=== PATIENT | female | born 1955 | race Caucasian/White ===

== ENCOUNTER 2023-07-30 11:13 | Outpatient (CLI) | payer OTHER | END 2023-07-30 11:14 | disposition home or self-care (01) | LOC: DTY/OP 11:13 | PROVIDERS: ATTEND Surgery | DX: E66.01 Morbid (severe) obesity due to excess calories (principal) | CPT/HCPCS: 97802 ==

== ENCOUNTER 2023-09-09 12:55 | Outpatient (CLI) | payer MEDICARE ==
[2023-09-09 14:15] LABS: #Basophils 0.09 10x3/uL (0.0-0.2); #Eosinphils 0.21 10x3/uL (0.0-0.5); #Monocytes 0.69 10x3/uL (0.0-1.1); %Basophils 1.1 % (0.0-2.0); %Eosinophils 2.6 % (0.0-6.0); %Lymphocytes 23.5 % (18.0-47.0); %Monocytes 8.6 % (0.0-10.0); %Neutrophils 63.9 % (40.0-75.0); Hematocrit 41.1 % (34.9-44.5); Hemoglobin 13.9 g/dL (12.0-15.5); Mean Corpuscular HGB CONC 33.8 g/dL (32.0-36.0); Mean Corpuscular Hemoglobin 31.4 pg (27.0-33.0); Mean Platelet Volume 10.3 fL (7.4-10.4); Platelet Count 253 10x3/uL (150-450); RBC Distribution Width 12.4 % (11.5-14.5); Red Blood Cell (RBC) Count 4.42 10x6/uL (3.90-5.03)
[2023-09-09 14:29] LABS: ALT (SGPT) 34 U/L (8-55); AST (SGOT) 53 U/L (5-34); Albumin 4.3 g/dL (3.4-4.8); Alkaline Phosphatase 83 U/L (40-110); Anion Gap 13 mmol/L (10-20); BUN (Urea Nitrogen) 13 mg/dL (9.8-20.1); Bilirubin, Total 0.6 mg/dL (0.2-1.2); Calc. Creatinine Clearance 0 mL/min (70-130); Calcium 9.5 mg/dL (7.8-10.44); Carbon Dioxide 23 mmol/L (23-31); Chloride 104 mmol/L (98-107); Estimated GFR 59; Glucose 120 mg/dL (80-115); Potassium 4.1 mmol/L (3.5-5.1); Protein, Total 7.3 g/dL (5.8-8.1); Sodium 136 mmol/L (136-145)
== END 2023-09-09 12:56 | disposition home or self-care (01) ==
LOC: LABBT 12:55
PROVIDERS: ATTEND Surgery
DX: Z01.818 Encounter for other preprocedural examination (principal); K21.9 Gastro-esophageal reflux disease without esophagitis; E66.01 Morbid (severe) obesity due to excess calories
CPT/HCPCS: 80053; 85025; 93005; 93010

== ENCOUNTER 2023-09-09 13:00 | Inpatient (IN) | payer MEDICARE ==
[2023-09-23] MEDS ORDERED: Bupivacaine 0.25% HCL 30 ML VIAL ONE (06:45)
[2023-09-23] MEDS ORDERED: EPINEPHrine 1 MG/ML VIAL ONE (06:45)
[2023-09-23] MEDS ORDERED: Propofol 500 MG/50 ML VIAL ONE (06:57)
[2023-09-23] MEDS ORDERED: Rocuronium Bromide 10 MG/ML (10ML VIAL) ONE (07:01)
[2023-09-23] MEDS ORDERED: PROPOFOL 40 ML ONE (07:01)
[2023-09-23] MEDS ORDERED: Lidocaine 1% PF 5 ML VIAL ONE (07:01)
[2023-09-23] MEDS ORDERED: fentaNYL PF 100 MCG/2 ML SYRINGE ONE ×2 (07:01→10:33)
[2023-09-23] MEDS ORDERED: LevoFLOXacin D5W 500 mg (100 mL) BAG ONE (07:11)
[2023-09-23] MEDS ORDERED: Esmolol 100 MG/10 ML VIAL ONE (07:45)
[2023-09-23] MEDS ORDERED: ePHEDrine Sulfate 50 MG/10 ML VIAL ONE (07:52)
[2023-09-23] MEDS ORDERED: Dexamethasone 20 MG/5 ML VIAL ONE (07:52)
[2023-09-23] MEDS ORDERED: Dexmedetomidine 200 MCG/2 ML VIAL ONE (08:03)
[2023-09-23] MEDS ORDERED: Sodium Chloride 0.9% 100 ML ONE (08:04)
[2023-09-23] MEDS ORDERED: PHENYLEPHRINE-NS 100 MCG/ML 10 ML SYRINGE ONE (08:12)
[2023-09-23] MEDS ORDERED: Promethazine HCl 25 MG/ML VIAL IM PRN ×2 (08:17→17:15)
[2023-09-23] MEDS ORDERED: Ondansetron HCl/PF 4 MG/2 ML Vial IVP PRN (08:17)
[2023-09-23] MEDS ORDERED: SUGAMMADEX SODIUM 200 MG/2 ML VIAL ONE (08:52)
[2023-09-23] MEDS ORDERED: Ketorolac Tromethamine 30 MG (1 mL) VIAL ONE (09:26)
[2023-09-23] MEDS ORDERED: Ondansetron PF 4 MG/2 ML Vial ONE ×2 (09:26→10:12)
[2023-09-23] MEDS ORDERED: Bacitracin Zinc Ointment 30 gm TUBE ONE (09:37)
[2023-09-23] MEDS ORDERED: Ipratropium/Albuterol 3 ML NEB NEB PRN (10:00)
[2023-09-23] MEDS ORDERED: Ondansetron PF 4 MG/2 ML Vial IVP PRN (10:00)
[2023-09-23] MEDS ORDERED: traMADol HCl 50 MG TAB PO PRN (10:00)
[2023-09-23] MEDS ORDERED: Glucagon 1 MG/ML KIT IM PRN (10:00)
[2023-09-23] MEDS ORDERED: Dextrose 50% Abboject 50 ML SYRINGE SLOW IVP PRN (10:00)
[2023-09-23] MEDS ORDERED: Dextrose 5% in Water 1,000 ML IV PRN (10:00)
[2023-09-23] MEDS ORDERED: Hydrocodone-Acetamin 15 ML UDCUP PO PRN (10:00)
[2023-09-23] MEDS ORDERED: hydrALAZINE 20 MG/ML VIAL SLOW IVP PRN (10:00)
[2023-09-23] MEDS ORDERED: fentaNYL 50 mcg/mL 1 mL Vial ONE (10:13)
[2023-09-23] MEDS ORDERED: Promethazine HCl 25 MG/ML VIAL ONE (10:33)
[2023-09-23] MEDS ORDERED: D5 1/2 NS w/20 mEq KCL 1,000 ML ONE (10:49)
[2023-09-23] MEDS: D5 1/2 NS w/20 mEq KCL 1,000 ML IV SCH (11:25)
[2023-09-23 11:54] VITALS: BMI 44.9
[2023-09-23] MEDS: fentaNYL 50 mcg/mL 1 mL Vial SLOW IVP SCH (12:14)
[2023-09-23] MEDS: Ketorolac Tromethamine 30 MG (1 mL) VIAL IVP PRN (12:14)
[2023-09-23] MEDS ORDERED: fentaNYL 50 mcg/mL 1 mL Vial SLOW IVP PRN (13:11)
[2023-09-23] MEDS: Promethazine HCl 25 MG/ML VIAL IM PRN (15:59)
[2023-09-23] MEDS: oxyCODONE 5 MG TAB PO PRN (16:02)
[2023-09-23] MEDS: Acetaminophen 325 MG TAB PO SCH (16:05)
[2023-09-23] MEDS: Ondansetron PF 4 MG/2 ML Vial IVP PRN (18:35)
[2023-09-23] MEDS: Acyclovir 200 mg Capsule PO SCH (21:30)
[2023-09-23] MEDS: Sertraline 100 MG TAB PO SCH (21:31)
[2023-09-23] MEDS: Cyclobenzaprine 10 MG TAB PO SCH (21:31)
[2023-09-23] MEDS: Acetaminophen 650 MG/20.3 ML UDCUP PO SCH (21:34)
[2023-09-23] MEDS: diphenhydrAMINE 50 MG/ML VIAL IVP PRN (21:45)
[2023-09-24 06:14] LABS: #Basophils 0.04 10x3/uL (0.0-0.2); %Basophils 0.3 % (0.0-1.0); %Eosinophils 0.3 % (0.0-10.0); %Lymphocytes 16.7 % (21.0-51.0); %Monocytes 9.3 % (0.0-10.0); %Neutrophils 73.1 % (42.0-75.0); Hematocrit 38.3 % (36.0-47.0); Hemoglobin 12.8 g/dL (12.0-16.0); Mean Corpuscular HGB CONC 33.4 g/dL (32.0-36.0); Mean Corpuscular Hemoglobin 31.8 pg (27.0-31.0); Mean Corpuscular Volume 95.3 fL (78.0-98.0); Mean Platelet Volume 11.1 fL (7.4-10.4); Platelet Count 234 10x3/uL (130-400); RBC Distribution Width 12.1 % (11.5-14.5); Red Blood Cell (RBC) Count 4.02 mill/uL (4.20-5.40)
[2023-09-24 06:34] LABS: Anion Gap 12 mmol/L (10-20); BUN (Urea Nitrogen) 11 mg/dL (9.8-20.1); Calc. Creatinine Clearance 105 mL/min (70-130); Calcium 9.2 mg/dL (7.8-10.44); Carbon Dioxide 20 mmol/L (23-31); Chloride 108 mmol/L (98-107); Estimated GFR 74; Glucose 102 mg/dL (80-115); Potassium 4.3 mmol/L (3.5-5.1); Sodium 136 mmol/L (136-145)
[2023-09-24] MEDS: Lisinopril 10 MG TAB PO SCH (08:17)
[2023-09-24] MEDS: Pantoprazole 40 MG VIAL IVP SCH (08:17)
[2023-09-24] MEDS: Enoxaparin 40 MG (0.4 mL) SYRINGE SC SCH (08:20)
[2023-09-24 11:54] VITALS: BP 134/83; TEMP 98.2
== END 2023-09-24 12:36 | disposition home or self-care (01) | DRG 621 ==
LOC: SURG A 09-23 06:06
PROVIDERS: ADMIT Surgery; ATTEND Surgery
PROC: 0D164ZA Bypass Stomach to Jejunum, Percutaneous Endoscopic Approach (ICD-10-PCS; principal; 2023-09-23)
PROC: 8E0Y4CZ Robotic Assisted Procedure of Lower Extremity, Percutaneous Endoscopic Approach (ICD-10-PCS; 2023-09-23)
PROC: 3E033XZ Introduction of Vasopressor into Peripheral Vein, Percutaneous Approach (ICD-10-PCS; 2023-09-23)
DX: E66.01 Morbid (severe) obesity due to excess calories (principal); K21.9 Gastro-esophageal reflux disease without esophagitis; I10 Essential (primary) hypertension; E78.00 Pure hypercholesterolemia, unspecified; Z79.899 Other long term (current) drug therapy; Z90.710 Acquired absence of both cervix and uterus; Z98.890 Other specified postprocedural states; Z68.42 Body mass index [BMI] 45.0-49.9, adult
CPT/HCPCS: 36415; 80048; 85025; 94760; C9113; J0171; J0665; J1100; J1200; J1650; J1885; J1956; J2405; J2550; J2704; J3010; J3480

== ENCOUNTER 2024-09-07 11:30 | Outpatient (CLI) | payer MEDICARE ==
[2024-09-07 12:57] LABS: #Basophils 0.06 10x3/uL (0.0-0.2); #Eosinophils 0.12 10x3/uL (0.0-0.7); #Monocytes 0.55 10x3/uL (0.11-0.59); #Neutrophils 3.78 10x3/uL (1.40-6.50); %Basophils 1.0 % (0.0-1.0); %Eosinophils 1.9 % (0.0-10.0); %Lymphocytes 27.7 % (21.0-51.0); %Monocytes 8.8 % (0.0-10.0); %Neutrophils 60.4 % (42.0-75.0); Hematocrit 40.0 % (36.0-47.0); Hemoglobin 13.1 g/dL (12.0-16.0); Mean Corpuscular Hemoglobin 30.5 pg (27.0-31.0); Mean Corpuscular Volume 93.0 fL (78.0-98.0); Platelet Count 228 10x3/uL (130-400); Red Blood Cell (RBC) Count 4.30 mill/uL (4.20-5.40); White Blood Cell (WBC) Count 6.25 10x3/uL (4.8-10.8)
[2024-09-07 13:13] LABS: Anion Gap 13 mmol/L (10-20); BUN (Urea Nitrogen) 9 mg/dL (9.8-20.1); Calc. Creatinine Clearance 0 mL/min (70-130); Calcium 9.2 mg/dL (7.8-10.44); Carbon Dioxide 25 mmol/L (23-31); Chloride 105 mmol/L (98-107); Glucose 84 mg/dL (80-115); INR-International Normal Ratio 1.1; Potassium 4.0 mmol/L (3.5-5.1); Prothrombin Time 14.2 sec (12.0-14.7); Sodium 139 mmol/L (136-145)
== END 2024-09-07 11:31 | disposition home or self-care (01) ==
LOC: LABBT 11:30
PROVIDERS: ATTEND Orthopaedic Surgery
DX: Z01.818 Encounter for other preprocedural examination (principal); M17.11 Unilateral primary osteoarthritis, right knee
CPT/HCPCS: 80048; 85025; 85610; 87081; 93005; 93010

== ENCOUNTER 2024-09-07 12:10 | Outpatient (CLI) | payer MEDICARE | END 2024-09-07 12:11 | disposition home or self-care (01) | LOC: CT 12:10 | PROVIDERS: ATTEND Orthopaedic Surgery | DX: M17.11 Unilateral primary osteoarthritis, right knee (principal) ==